=== PATIENT | female | born 1975 | race African-American/Black ===

== ENCOUNTER 2017-10-17 14:13 | Emergency (ER) | payer MEDICAID, OTHER ==
[~2017-10-17] VITALS: Ht 165.1 cm; Wt 82.5 kg
[2017-10-17] MEDS ORDERED: IBUPROFEN 800 MG TABLET PO ONE (15:45)
[2017-10-17] MEDS ORDERED: PERTUSS(ACELL),DIPH,TET VAC/PF 0.5 ML VIAL IM ONE (15:45)
[2017-10-17 16:10] VITALS: BP 128/80
== END 2017-10-17 16:14 | disposition home or self-care (01) ==
LOC: EMS 14:14
DX: L03.113 Cellulitis of right upper limb (principal); F17.210 Nicotine dependence, cigarettes, uncomplicated; F15.90 Other stimulant use, unspecified, uncomplicated
CPT/HCPCS: 90471; 90715; 99283